=== PATIENT | male | born 1955 | race Caucasian/White ===

== ENCOUNTER 2024-04-25 19:16 | Emergency (ER) | payer MEDICARE, OTHER ==
[~2024-04-25] VITALS: Ht 177.8 cm; Wt 86.1 kg
[2024-04-25] MEDS: diphenhydrAMINE 50 mg/ml inj IV ONE (19:42)
[2024-04-25] MEDS: methylPREDNISolone sod succ 125mg/2ml vial IV ONE (19:43)
[2024-04-25] MEDS: famotidine/PF 10 mg/ml inj IV ONE (19:44)
[2024-04-25] MEDS: epiNEPHrine 1 mg/ml inj IM ONE (20:13)
[2024-04-25] MEDS ORDERED: EPIN0.3P3 IM (21:22)
[2024-04-25] MEDS ORDERED: FAMO20TA8 PO (21:22)
[2024-04-25] MEDS ORDERED: PRED20TA PO (21:22)
[2024-04-25 21:23] VITALS: BP 134/92; PULSE 99; RESP 16; TEMP 97.8; O2SAT 97
== END 2024-04-25 21:30 | disposition home or self-care (01) ==
LOC: ER 19:17
DX: T78.1XXA Other adverse food reactions, not elsewhere classified, initial encounter (principal); L50.0 Allergic urticaria; Z91.010 Allergy to peanuts; X58.XXXA Exposure to other specified factors, initial encounter
CPT/HCPCS: 96372; 96374; 96375; 99284; J0171; J1200; J2919; J3490